=== PATIENT | female | born 1975 ===

== ENCOUNTER 2017-03-06 11:09 | Emergency (ER) | payer MEDICAID ==
[2017-03-06 11:09] VITALS: BMI 20.3
[2017-03-06 11:47] VITALS: RESP 20
[2017-03-06] MEDS ORDERED: Tetanus/Diphtheria Toxoids 0.5 ml Syringe IM ONE ×2 (11:56→12:10)
--- NOTE | 2017-03-06 11:56 | C.PDOC ---
History Of Present Illness 41 year old female presents to the ED c/o right ankle that started last night. Patient is currently c/o pain, swelling and bleeding, patient reports she feel onto a ceramic floor and another person fell onto her. Patient noticed a cut on the side of her ankle and cleaned it with peroxide and neosporin. Patient still c/o persistent pain, swelling and being unable to bear any weight. Patient does not know when her tetanus immunization was, has not taken any medication for the pain. Patient denies weakness, numbness, prior injury, trauma. R ANKLE INJURY ONSET LAST NIGHT. CO PAIN, SWELLING, BLEEDING. PS FELL ONTO CERAMIC FLOOR, ANOTHER PERSON FELL ONTO HER. +CUT SIDE OF ANKLE PS CLEANED WOUND W PEROXIDE AND NEOSPORIN. CO PERSIST PAIN, SWELL UNABLE TO WT BEAR. UNK LAST TETANUS. NO PAIN MEDS TAKEN EXTERNAL GRINDER EXAM MILD DIST NONTOX EXT R ANKLE +SWELL LAT MALL W DIFFUSE TEND, HEMATOMA. LIMITED ROM. FOOT NEG SKIN +AVULSION LAC W ABRASIONS OVER R LAT MALL AREA. NO ACTIVE BLEED. REMAINDER NEG Time Seen by Provider: 03/06/17 11:48 Chief Complaint (Nursing): Lower Extremity Problem/Injury History Per: Patient History/Exam Limitations: no limitations Onset/Duration Of Symptoms: Days Current Symptoms Are (Timing): Still Present Recent travel outside of the [place]: No Additional History Per: Patient - Ankle/Foot Description Of Injury: Fell Currently Unable To: Bear Weight Past Medical History Reviewed: Historical Data, Nursing Documentation, Vital Signs Vital Signs: Last Vital Signs Temp 98.4 F 03/06/17 11:44 Pulse 74 03/06/17 11:44 Resp 20 03/06/17 11:44 BP 125/75 03/06/17 11:44 Pulse Ox 98 03/06/17 12:35 - Medical History PMH: Anemia, Anxiety, Asthma, Bipolar Disorder, COPD, Emphysema, Pneumonia, Pneumothorax Surgical History: No Surg Hx Family History: States: Unknown Family Hx - Social History Hx Tobacco Use: Yes Hx Alcohol Use: Yes Hx Substance Use: No - Immunization History Hx Tetanus Toxoid Vaccination: Yes Hx Influenza Vaccination: No Hx Pneumococcal Vaccination: No Review Of Systems Constitutional: Negative for: Fever, Chills Cardiovascular: Negative for: Chest Pain, Palpitations Respiratory: Negative for: Cough, Shortness of Breath Gastrointestinal: Negative for: Nausea, Vomiting, Abdominal Pain Musculoskeletal: Positive for: Foot Pain (right) Skin: Negative for: Rash Neurological: Negative for: Weakness, Numbness Physical Exam - Physical Exam Appears: Non-toxic, Other (Mild distress) Skin: Normal Color, Warm, Dry, Other (+ avulsion laceration with abrasions rosa right lateral malleolus area, no active bleeding) Head: Atraumatic, Normacephalic Eye(s): bilateral: Normal Inspection Nose: No Discharge, No Deformity Extremity: Normal ROM, Tenderness (diffuse right lateral malleolus), Capillary Refill (< 2 seconds), No Deformity, Swelling (rigth lateral malleolus), Other ( right ankle hematoma) Pulses: Left Dorsalis Pedis: Normal, Right Dorsalis Pedis: Normal Neurological/Psych: Oriented x3, Normal Speech, Normal Cognition, Normal Motor, Normal Sensation Gait: Steady ED Course And Treatment O2 Sat by Pulse Oximetry: 98 (On RA) Pulse Ox Interpretation: Normal - Other Rad r ankle X-Ray: Interpreted by Me (neg) R FOOT X-Ray: Interpreted by Me (NEG) Medical Decision Making Medical Decision Making: Impression: right ankle / foot pain Plan: * Tetanus update * Tylenol 650 mg PO * Right ankle X-Ray * Right foot X-Ray Disposition Counseled Patient/Family Regarding: Studies Performed, Diagnosis, Need For Followup - Disposition Referrals: [facility] [Outside] [facility] [Outside] Disposition: HOME/ ROUTINE Disposition Time: 12:28 Condition: IMPROVED Instructions: Ankle Sprain (ED), Abrasion (ED) Forms: [facility] (Eritrean), Work Excuse - Clinical Impression Clinical Impression: Laceration of ankle, Ankle sprain - Scribe Statement The provider has reviewed the documentation as recorded by the Scribe Alexander Leyva All medical record entries made by the Scribe were at my direction and personally dictated by me. I have reviewed the chart and agree that the record accurately reflects my personal performance of the history, physical exam, medical decision making, and the department course for this patient. I have also personally directed, reviewed, and agree with the discharge instructions and disposition. Orthopedic Care - Ambulation Aids Ambulation Aids: Adult Crutches
[2017-03-06] MEDS ORDERED: Bacitracin 500 Units/gm Oint Foilpak UD ONE (12:45)
--- NOTE | 2017-03-06 12:50 | RAD ---
PROCEDURE: Right ankle radiographs Right foot radiographs HISTORY: TRAUMA COMPARISON: None FINDINGS: BONES: No acute displaced fracture. JOINTS: No dislocation. SOFT TISSUES: Marked soft tissue swelling, greatest laterally. No evidence of radiopaque foreign body. OTHER FINDINGS: None. IMPRESSION: Marked soft tissue swelling, greatest laterally. No acute displaced fracture or dislocation identified. If symptoms persist or if there is clinical concern, x-ray follow-up in 7-10 days should be considered.
[2017-03-06 13:34] VITALS: BP 120/78; PULSE 75; TEMP 98; O2SAT 99
== END 2017-03-06 13:10 | disposition home or self-care (01) ==
LOC: C.ER 11:09
DX: S91.011A Laceration without foreign body, right ankle, initial encounter (principal); S93.401A Sprain of unspecified ligament of right ankle, initial encounter; W18.30XA Fall on same level, unspecified, initial encounter
CPT/HCPCS: 73610; 73630; 90471; 90714; 97116; 97161; 99285; G8978; G8979; G8980

== ENCOUNTER 2017-05-31 21:25 | Emergency (ER) | payer MEDICAID ==
[2017-05-31 21:25] VITALS: BMI 20.3
--- NOTE | 2017-05-31 22:06 | C.PDOC ---
History Of Present Illness 42yo female, presents to ED with complaitns of right sided chest pain, with associated shortness of breath. Patient states she has a history of anxiety, pneumothorax. 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 She denies any fever, chills, abdominal pain. She has no other medical complaints. Time Seen by Provider: 05/31/17 21:33 Chief Complaint (Nursing): Shortness Of Breath History Per: Patient History/Exam Limitations: no limitations Current Symptoms Are (Timing): Still Present Past Medical History Reviewed: Historical Data, Nursing Documentation, Vital Signs Vital Signs: Last Vital Signs Temp 97.9 F 05/31/17 23:57 Pulse 91 H 05/31/17 23:57 Resp 20 05/31/17 23:57 BP 111/80 05/31/17 23:57 Pulse Ox 99 06/01/17 00:42 - Medical History PMH: Anemia, Anxiety, Asthma, Bipolar Disorder, COPD, Emphysema, Pneumonia, Pneumothorax Surgical History: No Surg Hx Family History: States: Unknown Family Hx - Social History Hx Tobacco Use: Yes Hx Alcohol Use: Yes Hx Substance Use: No - Immunization History Hx Tetanus Toxoid Vaccination: Yes Hx Influenza Vaccination: Yes Hx Pneumococcal Vaccination: No Review Of Systems Except As Marked, All Systems Reviewed And Found Negative. Constitutional: Negative for: Fever, Chills Cardiovascular: Positive for: Chest Pain Respiratory: Positive for: Shortness of Breath Psych: Positive for: Anxiety Physical Exam - Physical Exam Appears: Non-toxic Skin: Normal Color, Warm Head: Normacephalic Eye(s): bilateral: Normal Inspection Oral Mucosa: Moist Neck: Normal ROM, Supple Chest: Tenderness (right upper chest, T2/midclavicular line) Cardiovascular: Rhythm Regular Respiratory: Normal Breath Sounds, No Wheezing Gastrointestinal/Abdominal: Normal Exam, Soft, No Tenderness Extremity: Normal ROM Neurological/Psych: Oriented x3, Other (anxious appearing) ED Course And Treatment - Laboratory Results Result Diagrams: 05/31/17 22:50 05/31/17 22:50 ECG: Interpreted By Me, Viewed By Me ECG Rhythm: Sinus Rhythm Rate From EC O2 Sat by Pulse Oximetry: 99 Reevaluation Time: 00:33 Reassessment Condition: Improved (much more calm/cooperative, though persistently argumentative, circumlocutious with poor insight) Medical Decision Making Medical Decision Making: Impression: anxiety, xanax withdrawal Plan: -- Labs -- CXR -- Xanax 0.5 mg PO -- Motrin 600 mg PO -- UDS -- Urinalysis Time: 2232 Upon re-evaluation, patient reports pain to her right trapezius and right medial scapular area consistent with prior history of pneumothorax. Despite normal CXR, patient is insistent on repeating her CT scan. Patient has poor insight into explanation as to why a CT scan is not medically indicated. Patient with persistent pressured speech and is anxious appearing, repeat dose of Xanax given. She denies any shortness of breath, and has full ROM of bilateral shoulders. Patient was offered an ice pack to alleviated pain and she refused stating it was "too cold." 0030: panic/anxiety in pt with h/o bipolar/anxiety. Why is pt only on Xanax for bipolar? Poor compliance with Xanax 0.5 mg PO BID, though much improved with same given in ED. R trapezius strain/sprain improved with motrin pt refused to use ice because it is "cold" NO PNX Despite normal CXR pt INSISTED on repeat CT chest (minimal benefits with high dose radiation exposure risks explained and pt demanded, with informed consent of exposure risks) CTA chest unchanged from 11/24 leukocytosis of unclear etiology, no pna/pnx/UTI ? related to smoking or demargination from panic/anxiety Defer empiric abx as pt dramatically improved and VSS with Xanax only. CTA Chest FINDINGS: Pulmonary arteries: No pulmonary embolism. Aorta: No aneurysm. No dissection. Lungs: Mild paraseptal emphysematous changes. Minimal atelectasis/scarring. No consolidation. Few scattered minimal peripheral groundglass opacities, nonspecific. Few subcentimeter pulmonary nodules, grossly stable. Pleural space: Few small pleural-based nodules or plaques, grossly stable. No significant pleural effusion. No pneumothorax. Heart: No cardiomegaly. No significant pericardial effusion. Bones/joints: No acute fracture. Soft tissues: Unremarkable. Lymph nodes: No pathologically enlarged lymph nodes. IMPRESSION: 1. No CT evidence of pulmonary embolism. 2. Incidental/non-acute findings are described above. Disposition Doctor Will See Patient In The: Office Counseled Patient/Family Regarding: Studies Performed, Diagnosis - Disposition Referrals: [facility] [Outside] [facility] [Outside] [facility] [Outside] Disposition: HOME/ ROUTINE Disposition Time: 00:37 Condition: GOOD Additional Instructions: panic/anxiety in pt with h/o bipolar/anxiety. Consider other meds for control of Bipolar Dz Exercise good compliance with Xanax 0.5 mg PO twice a day Continue outpatient follow-up with Psychiatry as normal. R trapezius strain/sprain improved with motrin 600 mg every 6 hours. use ice packs 1/2 hour per hour- excellent for muscle strain pain NO Pneumothorax Repeat CT chest shows NO PNEUMOTHORAX Grossly unchanged from 11/24 Instructions: Muscle Strain, Anxiety, Adult (DC) Forms: [employer] (Kyrgyz) - Clinical Impression Clinical Impression: Trapezius strain, Anxiety - Scribe Statement The provider has reviewed the documentation as recorded by the Scribe (Angi Johnson) Provider Attestation: All medical record entries made by the Scribe were at my direction and personally dictated by me. I have reviewed the chart and agree that the record accurately reflects my personal performance of the history, physical exam, medical decision making, and the department course for this patient. I have also personally directed, reviewed, and agree with the discharge instructions and disposition.
[2017-05-31 22:48] LABS: BARBITURATES, UR NEGATIVE (NEGATIVE); BENZODIAZEPINES, UR NEGATIVE (NEGATIVE); OPIATES, UR NEGATIVE (NEGATIVE); PHENCYCLIDINE, UR NEGATIVE (NEGATIVE)
[2017-05-31 22:54] LABS: BASO # 0.1 K/uL (0.0-0.2); BASO % 0.4 % (0.0-2.0); EOS % 0.3 % (0.0-4.0); HEMOGLOBIN 11.9 g/dL (11.0-16.0); LYMPH # 1.9 K/uL (1.0-4.3); LYMPH % 11.2 % (20.0-40.0); MEAN CELL VOLUME 86.5 fL (81.0-99.0); MEAN CORPUSCULAR HEMOGLOBIN 28.9 pg (27.0-31.0); MEAN CORPUSCULAR HGB CONC 33.4 g/dL (33.0-37.0); MEAN PLATELET VOLUME 8.6 fL (7.2-11.7); MONO # 1.1 K/uL (0.0-0.8); MONO % 6.2 % (0.0-10.0); NEUT # 14.2 K/uL (1.8-7.0); NEUT % 81.9 % (50.0-75.0); RBC 4.11 Mil/uL (3.80-5.20); RED CELL DISTRIBUTION WIDTH 16.8 % (11.5-14.5); WHITE BLOOD COUNT 17.4 K/uL (4.8-10.8)
[2017-05-31] MEDS ORDERED: Iodixanol 320 MG/ML 100 ML BOTTLE IV ONE (22:58)
[2017-05-31 22:59] LABS: HCG,QUALITATIVE URINE NEGATIVE (NEGATIVE)
[2017-05-31 23:01] LABS: SQUAMOUS EPITHIAL < 1 /hpf (0-5); URINE BILIRUBIN NEGATIVE (NEGATIVE); URINE BLOOD NEGATIVE (NEGATIVE); URINE CLARITY Clear (Clear); URINE COLOR Colorless (YELLOW); URINE GLUCOSE (UA) NORMAL (Normal); URINE LEUKOCYTE ESTERASE NEG Leu/uL (Negative); URINE PROTEIN NEGATIVE (NEGATIVE); URINE UROBILINOGEN NORMAL mg/dL (0.2-1.0)
[2017-05-31 23:06] LABS: ALB/GLOB RATIO 1.2 (1.0-2.1); ALBUMIN 4.5 g/dL (3.5-5.0); ALT/SGPT 13 U/L (9-52); AST/SGOT 26 U/L (14-36); BLOOD UREA NITROGEN 10 mg/dL (7-17); CALCIUM 8.9 mg/dl (8.6-10.4); GFR AFRICAN-AMERICAN > 60; GFR NON-AFRICAN AMERICAN > 60
[2017-05-31 23:58] VITALS: BP 111/80; PULSE 91; RESP 20; TEMP 97.9; O2SAT 99
--- NOTE | 2017-06-01 00:30 | CT ---
EXAM: CT Angiography Chest With Intravenous Contrast CLINICAL HISTORY: 42 years old, female; Pain; Chest pain; Right-sided chest pain; Prior surgery; Surgery date: 6+ months; Surgery type: Bleb-ectomy; Patient HX: HX of ptx; Additional info: R upper chest, h/o pnx, bleb-ectomy TECHNIQUE: Axial computed tomographic angiography images of the chest with intravenous contrast using pulmonary embolism protocol. All CT scans at this facility use one or more dose reduction techniques, viz.: automated exposure control; ma/kV adjustment per patient size (including targeted exams where dose is matched to indication; i.e. head); or iterative reconstruction technique. MIP reconstructed images were created and reviewed. Coronal and sagittal reformatted images were created and reviewed. CONTRAST: 100 mL of VISIPAQUE administered intravenously. COMPARISON: CT - ANGIO CHEST PE PROTOCOL 2015-11-16 18:08 FINDINGS: Pulmonary arteries: No pulmonary embolism. Aorta: No aneurysm. No dissection. Lungs: Mild paraseptal emphysematous changes. Minimal atelectasis/scarring. No consolidation. Few scattered minimal peripheral groundglass opacities, nonspecific. Few subcentimeter pulmonary nodules, grossly stable. Pleural space: Few small pleural-based nodules or plaques, grossly stable. No significant pleural effusion. No pneumothorax. Heart: No cardiomegaly. No significant pericardial effusion. Bones/joints: No acute fracture. Soft tissues: Unremarkable. Lymph nodes: No pathologically enlarged lymph nodes. IMPRESSION: 1. No CT evidence of pulmonary embolism. 2. Incidental/non-acute findings are described above.
--- NOTE | 2017-06-01 08:05 | RAD ---
Chest x-ray single frontal view History: Chest pain. Comparison: 11/16/2015 Findings: No focal infiltrate or effusion. Minimal linear atelectasis in the right midlung zone. Mild right apical pleural thickening. Clips project over the right upper wing thorax. Heart size within normal limits. Degenerative changes in the spine and shoulders. Impression: No focal infiltrate or effusion. Minimal linear atelectasis in the right midlung zone. Mild right apical pleural thickening. Clips project over the right upper wing thorax. Heart size within normal limits. Degenerative changes in the spine and shoulders.
--- NOTE | 2017-06-01 18:17 | CARD ---
APPROVED REPORT EKG Measurement Heart [id number] <Conclusion> Normal sinus rhythm with sinus arrhythmia Normal ECG
== END 2017-06-01 00:48 | disposition home or self-care (01) ==
LOC: C.ER 21:25
DX: S29.012A Strain of muscle and tendon of back wall of thorax, initial encounter (principal); X58.XXXA Exposure to other specified factors, initial encounter; F41.9 Anxiety disorder, unspecified
CPT/HCPCS: 71045; 71275; 80053; 80324; 80345; 80346; 80349; 80353; 80358; 80361; 81001; 83992; 84484; 84703; 85025; 93005; 99285; Q9967

== ENCOUNTER 2017-10-24 02:29 | Emergency (ER) | payer MEDICAID ==
[2017-10-24 02:31] VITALS: BMI 20.3
[2017-10-24] MEDS ORDERED: Naproxen 550 mg Tab PO STA (03:42)
[2017-10-24] MEDS ORDERED: Dexamethasone 4 mg/1 ml IM STA (03:42)
[2017-10-24] MEDS ORDERED: Naproxen 550 mg Tab PO ONE (03:52)
[2017-10-24] MEDS ORDERED: Dexamethasone 4 mg/1 ml ONE (03:52)
--- NOTE | 2017-10-24 04:13 | C.PDOC ---
History Of Present Illness 42 year old female presents to the ER with a complaint of generalized body aches since earlier today. Patient states she feels like her rheumatoid arthritis is acting up and she is due for her biweekly injection on Thursday. Patient is currently requesting pain medication; denies other complaints at this time. Time Seen by Provider: 10/24/17 02:53 Chief Complaint (Nursing): Flu-like Symptoms History Per: Patient History/Exam Limitations: no limitations Onset/Duration Of Symptoms: Hrs Current Symptoms Are (Timing): Still Present Recent travel outside of the [place]: No Past Medical History Reviewed: Historical Data, Nursing Documentation, Vital Signs Vital Signs: Last Vital Signs Temp 99.2 F 10/24/17 04:24 Pulse 87 10/24/17 04:24 Resp 18 10/24/17 04:24 BP 106/69 10/24/17 04:24 Pulse Ox 98 10/24/17 05:55 - Medical History PMH: Anemia, Anxiety, Asthma, Bipolar Disorder, COPD, Emphysema, Pneumonia, Pneumothorax Family History: States: No Known Family Hx - Social History Hx Tobacco Use: Yes Hx Alcohol Use: Yes Hx Substance Use: No - Immunization History Hx Tetanus Toxoid Vaccination: Yes Hx Influenza Vaccination: Yes Hx Pneumococcal Vaccination: No Review Of Systems Constitutional: Positive for: Other (Generalized body aches). Negative for: Fever, Chills Cardiovascular: Negative for: Chest Pain, Palpitations Respiratory: Negative for: Cough, Shortness of Breath Gastrointestinal: Negative for: Nausea, Vomiting Physical Exam - Physical Exam Appears: Non-toxic, No Acute Distress Skin: Normal Color, Warm, Dry Head: Atraumatic, Normacephalic Eye(s): bilateral: Normal Inspection Extremity: Normal ROM (x4), No Tenderness, Capillary Refill (<2 seconds), No Deformity, No Swelling Pulses: Left Dorsalis Pedis: Normal, Right Dorsalis Pedis: Normal Neurological/Psych: Oriented x3, Normal Speech, Normal Motor, Normal Sensation Gait: Steady ED Course And Treatment O2 Sat by Pulse Oximetry: 98 (Room air) Pulse Ox Interpretation: Normal Progress Note: Decadron and naproxen administered. Patient reports improvement of pain, she is resting comfortably in the ER in no acute distress, ambulatory with a steady gait, vitals are stable, will discharge home with Rx and instructions to follow up with PMD as scheduled. Disposition Counseled Patient/Family Regarding: Diagnosis, Need For Followup, Rx Given - Disposition Referrals: PMD, PMD [Other] Disposition: HOME/ ROUTINE Disposition Time: 04:08 Condition: STABLE Additional Instructions: Please follow up with PMD Continue current meds Return to ER if worse Instructions: Muscle and Bone Pain (DC) Forms: [facility] (Kazakh) - Clinical Impression Clinical Impression: Myalgia, Arthritic-like pain - PA / BILINGUAL ADMINISTRATIVE ASSISTANT / Resident Statement MD/DO has reviewed & agrees with the documentation as recorded. - Scribe Statement The provider has reviewed the documentation as recorded by the Scribe Cesar Díaz All medical record entries made by the Meseret were at my direction and personally dictated by me. I have reviewed the chart and agree that the record accurately reflects my personal performance of the history, physical exam, medical decision making, and the department course for this patient. I have also personally directed, reviewed, and agree with the discharge instructions and disposition.
[2017-10-24 04:24] VITALS: BP 106/69; PULSE 87; RESP 18; TEMP 99.2
[2017-10-24 04:30] VITALS: O2SAT 98
== END 2017-10-24 04:32 | disposition home or self-care (01) ==
LOC: C.ER 02:29
DX: M79.1 Myalgia (principal); Z72.0 Tobacco use
CPT/HCPCS: 96372; 99284; J1100

== ENCOUNTER 2018-01-17 13:08 | Emergency (ER) | payer MEDICAID ==
[2018-01-17 13:08] VITALS: BMI 20.3
[2018-01-17 13:19] VITALS: BP 125/87; PULSE 107; RESP 18; TEMP 98.1; O2SAT 99
--- NOTE | 2018-01-17 13:56 | C.PDOC ---
History Of Present Illness 42 year old female presents to the ED complaining of left thumb pain sustained status post tripping and falling yesterday. Reports she bent her thumb backwards when she fell. States she has been applying ice packs. Denies any LOC, head injury, or any other trauma. Time Seen by Provider: 01/17/18 13:35 Chief Complaint (Nursing): Finger,Hand,&Wrist History Per: Patient History/Exam Limitations: no limitations Onset/Duration Of Symptoms: Days (1) Current Symptoms Are (Timing): Still Present Quality: "Pain" Exacerbating Factor(s): Movement Past Medical History Reviewed: Historical Data, Nursing Documentation, Vital Signs Vital Signs: Last Vital Signs Temp 98.1 F 01/17/18 13:16 Pulse 107 H 01/17/18 13:16 Resp 18 01/17/18 13:16 BP 125/87 01/17/18 13:16 Pulse Ox 99 01/17/18 13:16 - Medical History PMH: Anemia, Anxiety, Asthma, Bipolar Disorder, COPD, Emphysema, Pneumonia, Pneumothorax Other Surgeries: Hx of surgeries Family History: States: No Known Family Hx - Social History Hx Tobacco Use: Yes Hx Alcohol Use: Yes Hx Substance Use: No - Immunization History Hx Tetanus Toxoid Vaccination: Yes Hx Influenza Vaccination: Yes Hx Pneumococcal Vaccination: No Review Of Systems Except As Marked, All Systems Reviewed And Found Negative. Constitutional: Negative for: Fever, Chills Musculoskeletal: Positive for: Other (left thumb pain) Neurological: Negative for: Weakness, Numbness Physical Exam - Physical Exam Appears: Non-toxic, No Acute Distress Skin: Warm, Dry Head: Normacephalic Eye(s): bilateral: Normal Inspection Nose: Normal Oral Mucosa: Moist Neck: Supple Chest: Symmetrical Extremity: No Normal ROM (limited due to pain ), Other (ecchymosis and swelling at the base of the left thumb ) Neurological/Psych: Oriented x3, Normal Speech, Normal Sensation, Normal Reflexes Gait: Steady ED Course And Treatment O2 Sat by Pulse Oximetry: 99 (RA) Pulse Ox Interpretation: Normal - Other Rad L thumb X-Ray: Interpreted by Me (neg), Viewed By Me, Read By Radiologist Interpretation: IMPRESSION: No acute fracture or dislocation. Medical Decision Making Medical Decision Making: Plan - Motrin 400mg PO - XR left hand XR of left hand shows no fracture or dislocation. Spica splint applied to L thumb by associate account manager. Patient instructed to apply ice packs and take Motrin for pain. Advised to follow up with Dr. Arvizu, orthopedics. L thumb sprain yesterday, no fx/disloc on films Disposition Doctor Will See Patient In The: Office Counseled Patient/Family Regarding: Studies Performed, Diagnosis - Disposition Referrals: [facility] [Outside] [facility] [Outside] [facility] [Outside] [facility] [Outside] Shaik Sarabia MD [Staff Provider] - Deni Arvizu MD [Staff Provider] - Disposition: HOME/ ROUTINE Disposition Time: 13:56 Condition: GOOD Additional Instructions: maintain splint in place until improved ice packs 1/2 hour per hour, nothing hot motrin 400 mg every 6 hours as needed outpatient follow-up with your PMD or Dr. Arvizu- [facility]- Call for an appt. Instructions: Sprained Thumb Forms: [facility] (Namibian) - Clinical Impression Clinical Impression: Left thumb sprain - Scribe Statement The provider has reviewed the documentation as recorded by the Scribe Bessie Oconnell All medical record entries made by the Scribe were at my direction and personally dictated by me. I have reviewed the chart and agree that the record accurately reflects my personal performance of the history, physical exam, medical decision making, and the department course for this patient. I have also personally directed, reviewed, and agree with the discharge instructions and disposition.
--- NOTE | 2018-01-17 14:39 | RAD ---
Date of service: 01/17/2018 PROCEDURE: Left Thumb radiographs. HISTORY: trauma/sprain yesterday COMPARISON: None. TECHNIQUE: AP radiograph of the left hand, as well as spot oblique and lateral images of thumb were obtained. FINDINGS: LEFT THUMB: Normal left thumb, without acute fracture or focal lesion. Remainder of the left hand (as seen on the AP view) grossly unremarkable. JOINTS: Normal. SOFT TISSUES: Normal. OTHER FINDINGS: None. IMPRESSION: No acute fracture or dislocation.
== END 2018-01-17 14:17 | disposition home or self-care (01) ==
LOC: C.ER 13:08
DX: S63.602A Unspecified sprain of left thumb, initial encounter (principal); W01.0XXA Fall on same level from slipping, tripping and stumbling without subsequent striking against object, initial encounter; Z72.0 Tobacco use; F31.9 Bipolar disorder, unspecified